=== PATIENT | male | born 1970 | race Caucasian/White ===

== ENCOUNTER 2017-08-09 04:07 | Emergency (ER) | payer OTHER ==
[~2017-08-09] VITALS: Ht 188 cm; Wt 90.7 kg
[2017-08-09 04:56] LABS: Basophils # (auto) 0 uL; Basophils % (auto) 0.3 % (0.0-2.0); Eosinophils # (auto) 0.1 uL; Eosinophils % (auto) 2.3 % (0.0-7.0); Hematocrit 41.2 % (41.0-53.0); Hemoglobin 13.9 g/dL (13.5-17.5); Lymphocytes # (auto) 1.3 uL; Mean Corpuscular Hgb Conc. 33.8 g/dL (32.0-36.0); Mean Corpuscular Volume 88.8 fL (80.0-100.0); Monocytes # (auto) 0.7 uL; Monocytes % (auto) 14.2 % (0.0-12.0); Neutrophils # (auto) 2.8 uL; Neutrophils % (auto) 57.2 % (37.0-80.0); Nucleated Red Blood Cells % 0.1 %; Platelet Count (auto) 216 10^3/uL (140-450); Red Blood Cells 4.64 10^6/uL (4.5-5.90); Red Cell Distribution Width 13.3 % (11.8-14.3); White Blood Cell 4.9 10^3/uL (4.4-10.8)
[2017-08-09 05:18] LABS: Albumin 4.2 g/dL (3.4-5.0); BUN/Creatinine Ratio 12.9; Bilirubin, Total 0.8 mg/dL (0.2-1.0); Calcium 8.5 mg/dL (8.5-10.1); Potassium 3.8 mmol/L (3.5-5.1); Total Protein 7.9 g/dL (6.4-8.2)
[2017-08-09 07:19] VITALS: BP 144/86
[2017-08-09] MEDS ORDERED: LORazepam 2MG/ML-1ML VIAL IM ONE ×2 (08:00→08:30)
[2017-08-09] MEDS ORDERED: LORazepam 2MG/ML-1ML VIAL ONE (08:24)
== END 2017-08-09 08:36 | disposition home or self-care (01) ==
LOC: ER 04:09
DX: F20.9 Schizophrenia, unspecified (principal); F32.9 Major depressive disorder, single episode, unspecified; R45.851 Suicidal ideations; R07.0 Pain in throat
CPT/HCPCS: 36415; 71045; 74176; 80053; 85025; 96372; 99285; J2060